=== PATIENT | male | born 1990 | race Caucasian/White ===

== ENCOUNTER 2020-12-24 15:35 | Emergency (ER) | payer MEDICAID, SELFPAY ==
[2020-12-24 15:38] VITALS: BP 120/72; PULSE 103; RESP 16; TEMP 36.2; O2SAT 97; BMI 18.8
--- NOTE | 2020-12-24 16:01 | ED.SKABFB ---
HPI - Skin/Abscess/Foreign Bdy General Chief complaint: Skin/Abscess/Foreign Body Stated complaint: abscess Time Seen by Provider: 12/24/20 16:00 History of Present Illness HPI narrative: Patient complains of wound in left antecubital or area after injecting with IV drugs and is a regular IV drug user, last tetanus unknown, no fever no chills Related Data Previous Rx's Medication Instructions Recorded doxycycline hyclate 100 mg PO BID 7 Days #14 cap 12/24/20 Allergies Allergy/AdvReac Type Severity Reaction Status Date / Time haloperidol [From HALDOL] AdvReac Severe INVOLUNTARY Verified 12/24/20 15:41 SPASMS Review of Systems Review of Systems: No fever no chills no dizziness no weakness no numbness weakness or tingling no joint pain no other skin rash no chest pain no shortness of breath Yes all other systems are reviewed and are negative [facility] [place] Past Medical History Attestation statement: The following information was validated with the patient. [facility] [place] Narrative: Patient is regular IV drug user Source: nursing notes reviewed Medical History (Updated 12/24/20 @ 16:15 by MEDINA Nieto) No known health problems Social History Social History Advance Directives: No Advance Directives Information Provided: Yes Physical Exam Vital Signs: Vital Signs: Last Vital Signs Temp 97.1 F 12/24/20 15:38 Pulse 103 H 12/24/20 15:38 Resp 16 12/24/20 15:38 BP 120/72 12/24/20 15:38 Pulse Ox 97 12/24/20 15:38 Body Mass Index 18.8 General appearance is no acute distress comfortable and cooperative Head is normocephalic atraumatic Neck is supple Respiratory no distress Extremities full range of motion x4 including left arm left elbow left shoulder left wrist The left antecubital has a dime-size wound with no surrounding erythema, there is full range of motion in the elbow, neurovascular intact distal, no discharge no fluctuance Course Course Course Narrative: Patient did say that he squeezed a red bump in the antecubital 2 days ago and a large amount of pus did come out, right now there is no evidence of abscess or any significant cellulitis and patient is treated with doxycycline and given the number of the wound clinic if the wound in his antecubital area does not heal Discharge Plan Discharge Clinical Impression: Cellulitis Patient Disposition: Home, Self-Care Additional Instructions: Use antibiotic as described Return any time for spreading redness, worse pain and swelling, fever, any worse condition or concerns If small wound in her left arm does not get better within 1 week follow with Wound Clinic for further evaluation You got a tetanus shot Prescriptions: New doxycycline hyclate 100 mg capsule 100 mg PO BID 7 Days Qty: 14 RF: 0 Referrals: Meche Lopez PA [Physician Jaw Skinner] - 2 days (Left antecubital wound)
[2020-12-24] MEDS: Diphth,Pertus(ACell),Tet Adult 0.5 ML SYRINGE IM (16:18)
== END 2020-12-24 16:27 | disposition home or self-care (01) ==
PROVIDERS: Emergency Provider Emergency Medicine
DX: L02.414 Cutaneous abscess of left upper limb (principal); F11.10 Opioid abuse, uncomplicated; Z79.899 Other long term (current) drug therapy
CPT/HCPCS: 90471; 90715; 99283; 99284